=== PATIENT | female | born 1990 | race Hispanic/Latino ===

== ENCOUNTER 2017-05-23 17:11 | Observation (INO) | payer MEDICAID ==
[2017-05-23 19:03] LABS: APPEARANCE,URINE Cloudy (CLEAR); BILIRUBIN,URINE Negative (NEGATIVE); COLOR,URINE Yellow (YELLOW); GLUCOSE, URINE (UA) Negative (NEGATIVE); KETONES,URINE Negative (NEGATIVE); LEUKOCYTE ESTERASE ,URINE Negative (NEGATIVE); NITRATE,URINE Negative (NEGATIVE); OCCULT BLOOD,URINE Negative (NEGATIVE); PH,URINE 6.5 (5.0-8.0); PROTEIN,URINE Negative (NEGATIVE)
[2017-05-23 19:37] LABS: AMORPHOUS SEDIMENT,UR Few /LPF (None Seen); BACTERIA,URINE None Seen /HPF (None Seen); RBC,URINE None Seen /HPF (0-1); SQUAMOUS EPITHELIAL CELL,UR 0-2 /LPF (0-2); WBC,URINE 0-1 /HPF (0-1)
== END 2017-05-23 20:00 | disposition home or self-care (01) ==
LOC: EDH 17:11 → LDH 17:12
PROVIDERS: ADMIT Obstetrics & Gynecology; ATTEND Obstetrics & Gynecology
DX: O42.913 Preterm premature rupture of membranes, unspecified as to length of time between rupture and onset of labor, third trimester (principal); O26.893 Other specified pregnancy related conditions, third trimester; N89.8 Other specified noninflammatory disorders of vagina; R10.9 Unspecified abdominal pain; M54.9 Dorsalgia, unspecified; Z3A.36 36 weeks gestation of pregnancy
CPT/HCPCS: 81001; 99285; G0378 ×3

== ENCOUNTER 2017-06-13 18:13 | Inpatient (IN) | payer MEDICAID ==
[~2017-06-13] VITALS: Ht 165.1 cm; Wt 91.6 kg
[2017-06-13] MEDS ORDERED: LACTATED RINGERS 1000ML 1,000 ML IV PRN (18:21)
[2017-06-13] MEDS ORDERED: OXYTOCIN-LR 20 UNITS/1000 ML 1,000 ML IV SCH (18:30)
[2017-06-13 19:30] VITALS: BP 120/80
[2017-06-13] MEDS ORDERED: MEPERIDINE-PF 50 MG/ML SYG IVP STA (20:07)
[2017-06-13] MEDS ORDERED: PROMETHAZINE HCL 25 MG/ML 1ML AMPULE IM STA (20:07)
[2017-06-13 20:15] LABS: APPEARANCE,URINE Cloudy (CLEAR); BILIRUBIN,URINE Negative (NEGATIVE); COLOR,URINE Yellow (YELLOW); GLUCOSE, URINE (UA) Negative (NEGATIVE); KETONES,URINE Negative (NEGATIVE); LEUKOCYTE ESTERASE ,URINE Large (NEGATIVE); NITRATE,URINE Negative (NEGATIVE); OCCULT BLOOD,URINE Negative (NEGATIVE); PH,URINE 6.5 (5.0-8.0); PROTEIN,URINE Negative (NEGATIVE)
[2017-06-13 20:33] LABS: BACTERIA,URINE Few /HPF (None Seen); RBC,URINE None Seen /HPF (0-1); SQUAMOUS EPITHELIAL CELL,UR 50-100 /HPF (0-2)
[2017-06-13 20:34] LABS: MUCUS,URINE Few LPF (None Seen)
[2017-06-13 21:23] LABS: HEMATOCRIT 28.4 % (36-48); MEAN CORPUSCULAR HEMOGLOBIN 25.9 pg (27.0-33.0); MEAN CORPUSCULAR HGB CONC 34.2 g/dL (32.0-36.0); MEAN CORPUSCULAR VOLUME 75.7 fL (79-99); PLATELET COUNT (AUTO) 254 K/uL (130-400); RED BLOOD CELL COUNT(AUTO) 3.74 MIL/uL (4.00-5.50); RED CELL DISTRIBUTION WIDTH 18.5 % (11.0-15.5); WHITE BLOOD COUNT (AUTO) 7.9 K/uL (4.8-10.8)
[2017-06-14] MEDS ORDERED: OXYTOCIN 10 USP UNITS/ML 20 UNIT in LACTATED RINGERS 1000ML 1,000 ML IV SCH (01:00)
[2017-06-14] MEDS ORDERED: LACTATED RINGERS 1000ML 1,000 ML IV ONE (02:39)
[2017-06-14] MEDS ORDERED: OXYTOCIN 10 USP UNITS/ML ONE ×3 (02:40→16:11)
[2017-06-14] MEDS ORDERED: PROMETHAZINE HCL 25 MG/ML 1ML AMPULE IM ONE (12:14)
[2017-06-14] MEDS ORDERED: MEPERIDINE-PF 50 MG/ML SYG ONE (12:15)
[2017-06-14] MEDS ORDERED: LANOLIN 30GM OINTMENT TP PRN (15:00)
[2017-06-14] MEDS ORDERED: BENZOCAINE/LANOLIN/ALOE VERA 60 ML AEROSOL TP PRN (15:00)
[2017-06-14] MEDS ORDERED: WITCH HAZEL 1 PAD TP PRN (15:00)
[2017-06-14] MEDS ORDERED: MEASLES/MUMPS/RUBELLA VACCINE, LIVE 0.5 ML/VIAL SQ PRN (15:00)
[2017-06-14] MEDS ORDERED: DIPH,PERTUSS(ACELL),TET VAC/PF 0.5 ML VIAL IM PRN (15:00)
[2017-06-14 16:25] VITALS: BP 104/67
[2017-06-14] MEDS ORDERED: PREN-66 PO (16:33)
[2017-06-14] MEDS ORDERED: FERS325 PO (16:33)
[2017-06-14] MEDS: IBUPROFEN 800 MG TAB PO PRN (16:55)
[2017-06-14] MEDS ORDERED: FLU VACC QS2017-18 36MOS UP/PF 60 MCG/0.5 ML ML IM SCH (18:45)
[2017-06-14] MEDS ORDERED: ACETAMINOPHEN 325 MG TAB PO PRN (19:00)
[2017-06-14 19:23] VITALS: BP 97/58
[2017-06-14] MEDS: DOCUSATE SODIUM 100 MG CAP PO SCH (21:03)
[2017-06-14 23:24] VITALS: BP 113/67
[2017-06-15 03:00] VITALS: BP 106/62
[2017-06-15] MEDS: IBUPROFEN 800 MG TAB PO PRN ×2 (03:22→12:54)
[2017-06-15 05:45] LABS: HEMATOCRIT 24.7 % (36-48); MEAN CORPUSCULAR HEMOGLOBIN 25.7 pg (27.0-33.0); MEAN CORPUSCULAR HGB CONC 34.1 g/dL (32.0-36.0); MEAN CORPUSCULAR VOLUME 75.5 fL (79-99); PLATELET COUNT (AUTO) 249 K/uL (130-400); RED BLOOD CELL COUNT(AUTO) 3.26 MIL/uL (4.00-5.50); RED CELL DISTRIBUTION WIDTH 18.4 % (11.0-15.5); WHITE BLOOD COUNT (AUTO) 11.2 K/uL (4.8-10.8)
[2017-06-15 07:28] VITALS: BP 113/68
[2017-06-15 09:17] LABS: HEPATITIS Bs ANTIGEN SCREEN P Negative (Negative)
[2017-06-15] MEDS: DOCUSATE SODIUM 100 MG CAP PO SCH (09:36)
[2017-06-15 11:28] VITALS: BP 102/64
[2017-06-15 15:16] VITALS: BP 95/52
== END 2017-06-15 18:20 | disposition home or self-care (01) | DRG 560 ==
LOC: LDH 18:13 → WSH 06-14 16:25
PROVIDERS: ADMIT Obstetrics & Gynecology; ATTEND Obstetrics & Gynecology
PROC: 10E0XZZ Delivery of Products of Conception, External Approach (ICD-10-PCS; principal; 2017-06-13)
PROC: 3E0234Z Introduction of Serum, Toxoid and Vaccine into Muscle, Percutaneous Approach (ICD-10-PCS; 2017-06-13)
PROC: 3E0234Z Introduction of Serum, Toxoid and Vaccine into Muscle, Percutaneous Approach (ICD-10-PCS; 2017-06-13)
PROC: 3E0134Z Introduction of Serum, Toxoid and Vaccine into Subcutaneous Tissue, Percutaneous Approach (ICD-10-PCS; 2017-06-13)
DX: O99.02 Anemia complicating childbirth (principal); D64.9 Anemia, unspecified; Z37.0 Single live birth; Z3A.39 39 weeks gestation of pregnancy; Z23 Encounter for immunization; Z88.8 Allergy status to other drugs, medicaments and biological substances
CPT/HCPCS: 36415; 81001; 85027; 86592; 86850; 86900; 86901; 87340; 90715; A4314; J2175; J2550; J2590; J7120

== ENCOUNTER 2018-07-12 00:30 | Emergency (ER) | payer MEDICAID, OTHER ==
[~2018-07-12 00:30] MED LIST: PREN-66 PO
[2018-07-12] MEDS ORDERED: METOCLOPRAMIDE 10 MG TABLET PO ONE (02:33)
[2018-07-12] MEDS ORDERED: SODIUM CHLORIDE 0.9% 1000ML 1,000 ML IV ONE (02:33)
[2018-07-12] MEDS ORDERED: ONDANSETRON HCL 4 MG/2 ML VIAL IVP ONE (02:33)
[2018-07-12] MEDS ORDERED: CYCLOBENZAPRINE HCL 10 MG TABLET PO ONE (02:33)
[2018-07-12] MEDS ORDERED: CEPHALEXIN 500 MG CAPSULE PO ONE (02:47)
[2018-07-12 06:13] LABS: ALBUMIN 3.6 g/dL (3.5-5.0); BILIRUBIN,TOTAL 0.1 mg/dL (0.2-1.0); CREATININE 0.5 mg/dL (0.5-1.5); POTASSIUM 3.6 mmol/L (3.5-5.1); TOTAL PROTEIN, SERUM 7.2 g/dL (6.0-8.3)
[2018-07-12 06:18] LABS: INR 1.03 (0.85-1.15); PROTHROMBIN TIME 10.8 SEC (9.6-11.6)
[2018-07-12 06:56] LABS: BASOPHILS % (AUTO) 0.6 % (0.0-5.0); EOSINOPHILS % (AUTO) 2.4 % (0.0-8.0); HEMATOCRIT 34.2 % (36-48); LYMPHOCYTES % (AUTO) 32.4 % (21.0-51.0); MEAN CORPUSCULAR HEMOGLOBIN 30.1 pg (27.0-33.0); MEAN CORPUSCULAR HGB CONC 34.7 g/dL (32.0-36.0); MEAN CORPUSCULAR VOLUME 86.7 fL (79-99); MONOCYTES % (AUTO) 6.3 % (3.0-13.0); NEUTROPHILS % (AUTO) 58.3 % (40.0-77.0); NUCLEATED RED BLOOD CELLS 0.1 % (0.0-0.19); PLATELET COUNT (AUTO) 308 K/uL (130-400); RED BLOOD CELL COUNT(AUTO) 3.95 MIL/uL (4.00-5.50); RED CELL DISTRIBUTION WIDTH 14.5 % (11.0-15.5); WHITE BLOOD COUNT (AUTO) 10.1 K/uL (4.8-10.8)
[2018-07-12 07:56] LABS: APPEARANCE,URINE CLEAR (CLEAR); BILIRUBIN,URINE NEGATIVE (NEGATIVE); COLOR,URINE YELLOW (YELLOW); GLUCOSE, URINE (UA) NEGATIVE (NEGATIVE); KETONES,URINE NEGATIVE (NEGATIVE); NITRATE,URINE NEGATIVE (NEGATIVE); OCCULT BLOOD,URINE NEGATIVE (NEGATIVE); PH,URINE 7.5 (5.0-8.0); PROTEIN,URINE NEGATIVE (NEGATIVE); UROBILINOGEN,URINE 0.2 mg/dL (0.2-1.0)
[2018-07-12 07:57] LABS: LEUKOCYTE ESTERASE ,URINE MODERATE (NEGATIVE)
[2018-07-12 07:58] LABS: BACTERIA,URINE Many /HPF (None Seen); HCG,QUAL RESULT POSITIVE (NEGATIVE); SQUAMOUS EPITHELIAL CELL,UR Rare /HPF (0-2); WBC,URINE 0-1 /HPF (0-1)
== END 2018-07-12 03:56 | disposition home or self-care (01) ==
LOC: EDH 00:30
DX: O20.0 Threatened abortion (principal); O23.41 Unspecified infection of urinary tract in pregnancy, first trimester; Z88.6 Allergy status to analgesic agent; Z3A.09 9 weeks gestation of pregnancy; Z72.0 Tobacco use
CPT/HCPCS: 36415; 76801; 80053; 81001; 81025; 83690; 85025; 85610; 85730; 86850; 86900; 86901; 96374; 96375; 99285; J2405; J7030

== ENCOUNTER 2019-01-08 14:12 | Observation (INO) | payer MEDICAID ==
[2019-01-08 15:09] LABS: APPEARANCE,URINE Cloudy (CLEAR); BILIRUBIN,URINE Negative (NEGATIVE); COLOR,URINE Yellow (YELLOW); GLUCOSE, URINE (UA) Negative (NEGATIVE); KETONES,URINE Negative (NEGATIVE); LEUKOCYTE ESTERASE ,URINE Moderate (NEGATIVE); NITRATE,URINE Negative (NEGATIVE); OCCULT BLOOD,URINE Negative (NEGATIVE); PH,URINE 7.5 (5.0-8.0); PROTEIN,URINE Negative (NEGATIVE); UROBILINOGEN,URINE 0.2 mg/dL (0.2-1.0)
[2019-01-08 15:26] LABS: BACTERIA,URINE Moderate /HPF (None Seen); MUCUS,URINE Few LPF (None Seen)
== END 2019-01-08 16:00 | disposition home or self-care (01) ==
LOC: EDH 14:12 → LDH 14:53
PROVIDERS: ADMIT Obstetrics & Gynecology; ATTEND Obstetrics & Gynecology
DX: O26.893 Other specified pregnancy related conditions, third trimester (principal); R10.32 Left lower quadrant pain; Z87.42 Personal history of other diseases of the female genital tract; Z3A.33 33 weeks gestation of pregnancy
CPT/HCPCS: 81001; 99284; G0378

== ENCOUNTER 2022-11-27 17:35 | Inpatient (IN) | payer MEDICAID ==
[~2022-11-27] VITALS: Ht 165.1 cm; Wt 86.2 kg
[~2022-11-27 17:35] MED LIST changes: +ACET1TAB12 PO; +PREN1TAB80 PO; +RANI-655 PO
[2022-11-27 18:54] LABS: BASOPHILS # (AUTO) 0.05 K/uL (0.00-0.20); BASOPHILS % (AUTO) 0.4 % (0.0-5.0); EOSINOPHILS # (AUTO) 0.27 K/uL (0.00-0.70); HEMATOCRIT 36.6 % (36-48); IMMATURE GRANULOCYTE ABSOLUTE 0.06 K/uL (0-1); LYMPHOCYTES % (AUTO) 22.7 % (21.0-51.0); MEAN CORPUSCULAR HEMOGLOBIN 29.1 pg (27.0-33.0); MEAN CORPUSCULAR HGB CONC 32.2 g/dL (32.0-36.0); MEAN CORPUSCULAR VOLUME 90.4 fL (79-99); MONOCYTES # (AUTO) 0.8 K/uL (0.1-1.0); MONOCYTES % (AUTO) 5.7 % (3.0-13.0); NEUTROPHILS # (AUTO) 9.2 K/uL (1.8-7.7); NEUTROPHILS % (AUTO) 68.8 % (40.0-77.0); PLATELET COUNT (AUTO) 426 K/uL (130-400); RED BLOOD CELL COUNT(AUTO) 4.05 MIL/uL (4.00-5.50); RED CELL DISTRIBUTION WIDTH 13.2 % (11.0-15.5); WHITE BLOOD COUNT (AUTO) 13.4 K/uL (4.8-10.8)
[2022-11-27 19:18] LABS: CREATININE 0.6 mg/dL (0.5-1.5); POTASSIUM 3.3 mmol/L (3.5-5.1)
[2022-11-27 19:23] LABS: ALBUMIN 3.8 g/dL (3.5-5.0); BILIRUBIN,TOTAL 0.1 mg/dL (0.2-1.0); TOTAL PROTEIN, SERUM 8.4 g/dL (6.0-8.3)
[2022-11-27] MEDS ORDERED: CEFTRIAXONE 1G VIAL IVPB ONE (19:30)
[2022-11-27] MEDS: CLINDAMYCIN IVPB 600MG/50ML 50 ML IV SCH (19:30)
[2022-11-27] MEDS ORDERED: KETOROLAC 30MG VIAL (30MG/ML) IVP ONE (19:30)
[2022-11-27] MEDS ORDERED: IOHEXOL-350 75 ML VIAL IV ONE (22:00)
[2022-11-27] MEDS ORDERED: ACETAMINOPHEN 325 MG TAB PO PRN ×2 (22:00)
[2022-11-27] MEDS ORDERED: ONDANSETRON 4MG INJ IV PRN (22:00)
[2022-11-27] MEDS ORDERED: LIDOCAINE HCL 1% 20 ML VIAL ONE (22:09)
[2022-11-27] MEDS ORDERED: HYDROMORPHONE 0.5 MG SYG (0.5MG/0.5ML) IVP ONE (22:30)
[2022-11-27] MEDS ORDERED: POTASSIUM CHLORIDE 20MEQ/100ML 100 ML IV PRN (22:30)
[2022-11-27] MEDS ORDERED: KCL 20 MEQ ERTAB PO PRN (22:30)
[2022-11-27] MEDS ORDERED: TRAMADOL HCL 50 MG TABLET PO SCH (22:30)
[2022-11-27] MEDS ORDERED: POTASSIUM CHLORIDE 10% ELIXIR 20 MEQ/15 ML UDCUP PO PRN (22:30)
[2022-11-27] MEDS ORDERED: MAGNESIUM 2GM PREMIX 50ML 50 ML IV PRN (22:30)
[2022-11-27] MEDS: LIDOCAINE HCL 1% 20 ML VIAL INJ SCH (22:38)
[2022-11-27 23:57] VITALS: O2SAT 100
[2022-11-28] MEDS: TRAMADOL HCL 50 MG TABLET PO PRN ×2 (05:41→16:57)
[2022-11-28 07:32] LABS: BASOPHILS # (AUTO) 0.03 K/uL (0.00-0.20); BASOPHILS % (AUTO) 0.3 % (0.0-5.0); EOSINOPHILS % (AUTO) 3.1 % (0.0-8.0); HEMATOCRIT 32.9 % (36-48); IMMATURE GRANULOCYTE ABSOLUTE 0.05 K/uL (0-1); LYMPHOCYTES # (AUTO) 2.5 K/uL (1.0-4.8); LYMPHOCYTES % (AUTO) 25.9 % (21.0-51.0); MEAN CORPUSCULAR HEMOGLOBIN 29.4 pg (27.0-33.0); MEAN CORPUSCULAR HGB CONC 33.1 g/dL (32.0-36.0); MEAN CORPUSCULAR VOLUME 88.7 fL (79-99); MONOCYTES # (AUTO) 0.5 K/uL (0.1-1.0); MONOCYTES % (AUTO) 5.6 % (3.0-13.0); NEUTROPHILS # (AUTO) 6.3 K/uL (1.8-7.7); NEUTROPHILS % (AUTO) 64.6 % (40.0-77.0); PLATELET COUNT (AUTO) 371 K/uL (130-400); RED BLOOD CELL COUNT(AUTO) 3.71 MIL/uL (4.00-5.50); RED CELL DISTRIBUTION WIDTH 13.1 % (11.0-15.5); WHITE BLOOD COUNT (AUTO) 9.7 K/uL (4.8-10.8)
[2022-11-28 08:00] LABS: ALBUMIN 3.1 g/dL (3.5-5.0); BILIRUBIN,TOTAL 0.3 mg/dL (0.2-1.0); CREATININE 0.5 mg/dL (0.5-1.5); MAGNESIUM 1.9 mg/dL (1.80-2.40); POTASSIUM 3.8 mmol/L (3.5-5.1); TOTAL PROTEIN, SERUM 7.3 g/dL (6.0-8.3)
[2022-11-28 08:10] LABS: INR 0.94 (0.85-1.15)
[2022-11-28 08:12] LABS: PARTIAL THROMBOPLASTIN TIME 27.3 SEC (26.3-35.5)
[2022-11-28] MEDS: CLINDAMYCIN IVPB 600MG/50ML 50 ML IV SCH ×3 (09:00→16:57)
[2022-11-28] MEDS: FAMOTIDINE 20MG TAB PO SCH ×2 (09:39→20:57)
[2022-11-28] MEDS ORDERED: KETOROLAC 15MG/ML VIAL (15MG/ML) IM PRN (13:30)
[2022-11-28] MEDS: KETOROLAC 15MG/ML VIAL (15MG/ML) IV PRN ×2 (13:51→21:02)
[2022-11-28 14:21] LABS: AMPHET/METH SCREEN,URINE NEGATIVE (NEGATIVE); BARBITURATE SCREEN, URINE NEGATIVE (NEGATIVE); BENZODIAZEPINES SCREEN,URINE NEGATIVE (NEGATIVE); CANNABINOID SCREEN,URINE NEGATIVE (NEGATIVE); COCAINE SCREEN,URINE NEGATIVE (NEGATIVE); OPIATE SCREEN,URINE NEGATIVE (NEGATIVE); PHENCYCLIDINE SCREEN,URINE NEGATIVE (NEGATIVE)
[2022-11-28 16:35] VITALS: BP 109/64; PULSE 62; RESP 18
[2022-11-28 19:59] VITALS: O2SAT 98
[2022-11-28 20:27] VITALS: BP 100/57; PULSE 59; RESP 19
[2022-11-28] MEDS: LIDOCAINE HCL 1% 20 ML VIAL INJ SCH (20:57)
[2022-11-28] MEDS ORDERED: PROMETHAZINE HCL 25 MG/ML 1ML AMPULE IM PRN (22:00)
[2022-11-28] MEDS: MEPERIDINE-PF 50 MG/ML SYG IM PRN (22:14)
[2022-11-29] VITALS (8 sets, daily range): BP systolic 95–122; BP diastolic 50–77; PULSE 51–71; RESP 16–19; O2SAT 100
[2022-11-29] MEDS: CLINDAMYCIN IVPB 600MG/50ML 50 ML IV SCH ×4 (00:33→23:58)
[2022-11-29 05:05] LABS: HEMATOCRIT 32.4 % (36-48); MEAN CORPUSCULAR HEMOGLOBIN 29.1 pg (27.0-33.0); MEAN CORPUSCULAR HGB CONC 31.8 g/dL (32.0-36.0); MEAN CORPUSCULAR VOLUME 91.5 fL (79-99); RED BLOOD CELL COUNT(AUTO) 3.54 MIL/uL (4.00-5.50); RED CELL DISTRIBUTION WIDTH 12.9 % (11.0-15.5); WHITE BLOOD COUNT (AUTO) 8.9 K/uL (4.8-10.8)
[2022-11-29 05:22] LABS: ALBUMIN 2.9 g/dL (3.5-5.0); BILIRUBIN,TOTAL 0.1 mg/dL (0.2-1.0); CREATININE 0.5 mg/dL (0.5-1.5); POTASSIUM 3.8 mmol/L (3.5-5.1); TOTAL PROTEIN, SERUM 6.8 g/dL (6.0-8.3)
[2022-11-29] MEDS: FAMOTIDINE 20MG TAB PO SCH ×2 (09:04→19:39)
[2022-11-29] MEDS: MEPERIDINE-PF 50 MG/ML SYG IM PRN ×2 (09:57→19:39)
[2022-11-29] MEDS: KETOROLAC 15MG/ML VIAL (15MG/ML) IV PRN (11:43)
[2022-11-29] MEDS: LIDOCAINE HCL 1% 20 ML VIAL INJ SCH (18:12)
[2022-11-29] MEDS ORDERED: MORPHINE 2 MG SYG ONE (22:08)
[2022-11-29] MEDS ORDERED: MORPHINE 2 MG SYG IVP ONE (22:30)
[2022-11-29] MEDS ORDERED: ASPIRIN 81MG CHEW TAB PO ONE (22:30)
[2022-11-29] MEDS ORDERED: NITROGLYCERIN 1GM OINT 1 INCH/1GM TD ONE (22:30)
[2022-11-30 00:22] VITALS: BP 103/46; PULSE 51; RESP 18
[2022-11-30] MEDS ORDERED: HALOPERIDOL INJ 5 MG/ML VIAL IM SCH (01:30)
[2022-11-30 04:00] VITALS: BP 93/56; PULSE 52; RESP 18
[2022-11-30 06:24] LABS: MEAN CORPUSCULAR HEMOGLOBIN 28.8 pg (27.0-33.0); MEAN CORPUSCULAR HGB CONC 32.6 g/dL (32.0-36.0); MEAN CORPUSCULAR VOLUME 88.3 fL (79-99); RED BLOOD CELL COUNT(AUTO) 3.85 MIL/uL (4.00-5.50); RED CELL DISTRIBUTION WIDTH 13.1 % (11.0-15.5); WHITE BLOOD COUNT (AUTO) 9.4 K/uL (4.8-10.8)
[2022-11-30 06:44] LABS: ALBUMIN 3.2 g/dL (3.5-5.0); BILIRUBIN,TOTAL 0.1 mg/dL (0.2-1.0); CREATININE 0.6 mg/dL (0.5-1.5); POTASSIUM 4.1 mmol/L (3.5-5.1); TOTAL PROTEIN, SERUM 7.6 g/dL (6.0-8.3)
[2022-11-30 07:57] VITALS: BP 90/51; PULSE 53; RESP 16
[2022-11-30 08:00] VITALS: O2SAT 99
[2022-11-30] MEDS: FAMOTIDINE 20MG TAB PO SCH (08:12)
[2022-11-30] MEDS: CLINDAMYCIN IVPB 600MG/50ML 50 ML IV SCH ×2 (08:12→16:20)
[2022-11-30] MEDS: KETOROLAC 15MG/ML VIAL (15MG/ML) IV PRN ×2 (10:20→16:21)
[2022-11-30 11:00] VITALS: BP 96/53; PULSE 56; RESP 16
[2022-11-30 16:00] VITALS: BP 111/64; PULSE 62; RESP 16
== END 2022-11-30 18:50 | disposition home or self-care (01) | DRG 383 ==
LOC: EDH 17:35 → EDHIP 17:36 → 3DH 11-28 16:00
PROVIDERS: ADMIT Hospitalist; ATTEND Hospitalist
PROC: 0H9HXZZ Drainage of Right Upper Leg Skin, External Approach (ICD-10-PCS; principal; 2022-11-27)
DX: L03.115 Cellulitis of right lower limb (principal); B95.62 Methicillin resistant Staphylococcus aureus infection as the cause of diseases classified elsewhere; D75.839 Thrombocytosis, unspecified; L02.415 Cutaneous abscess of right lower limb; E66.9 Obesity, unspecified; F12.90 Cannabis use, unspecified, uncomplicated; Z98.51 Tubal ligation status; Z88.5 Allergy status to narcotic agent; Z68.31 Body mass index [BMI] 31.0-31.9, adult
CPT/HCPCS: 36415; 73701; 80053; 80305; 81025; 83605; 83735; 84145; 84484; 84703; 85025; 85027; 85610; 85730; 87040; 87070; 87076; 87077; 87186; 93005; A6266; G0378; J0696; J1170; J1630; J1885; J2175; J2270; J2550; J3490; Q9967

== ENCOUNTER 2023-03-19 13:53 | Emergency (ER) | payer MEDICAID ==
[~2023-03-19] VITALS: Ht 165.1 cm; Wt 89.8 kg
[2023-03-19] MEDS ORDERED: KETOROLAC 60 MG VIAL (30MG/ML) IM ONE (14:30)
[2023-03-19] MEDS ORDERED: CEFTRIAXONE 1G VIAL IVPB ONE (14:30)
[2023-03-19 15:09] VITALS: BP 121/63; PULSE 75; RESP 14; O2SAT 98
[2023-03-19] MEDS ORDERED: CLIN-141 PO (15:10)
[2023-03-19] MEDS ORDERED: IBUP-2077 PO (15:10)
== END 2023-03-19 15:13 | disposition home or self-care (01) ==
LOC: EDH 13:53
DX: K02.9 Dental caries, unspecified (principal); K08.89 Other specified disorders of teeth and supporting structures; Z88.5 Allergy status to narcotic agent
CPT/HCPCS: 99284; 96374; 96372; J0696; J1885

== ENCOUNTER 2023-05-31 09:37 | Emergency (ER) | payer MEDICAID ==
[~2023-05-31] VITALS: Ht 165.1 cm; Wt 89.4 kg
[~2023-05-31 09:37] MED LIST changes: -ACET1TAB12 PO; +CLIN-141 PO; +IBUP-2077 PO; -PREN-66 PO; -PREN1TAB80 PO; -RANI-655 PO
[2023-05-31 09:38] VITALS: BP 112/66; PULSE 56; RESP 20
[2023-05-31 11:03] LABS: BASOPHILS # (AUTO) 0.05 K/uL (0.00-0.20); BASOPHILS % (AUTO) 0.6 % (0.0-5.0); EOSINOPHILS # (AUTO) 0.21 K/uL (0.00-0.70); EOSINOPHILS % (AUTO) 2.3 % (0.0-8.0); HEMATOCRIT 38.2 % (36-48); IMMATURE GRANULOCYTE ABSOLUTE 0.06 K/uL (0-1); LYMPHOCYTES # (AUTO) 2.5 K/uL (1.0-4.8); LYMPHOCYTES % (AUTO) 27.1 % (21.0-51.0); MEAN CORPUSCULAR HEMOGLOBIN 28.3 pg (27.0-33.0); MEAN CORPUSCULAR HGB CONC 32.2 g/dL (32.0-36.0); MEAN CORPUSCULAR VOLUME 87.8 fL (79-99); MONOCYTES # (AUTO) 0.6 K/uL (0.1-1.0); MONOCYTES % (AUTO) 7.1 % (3.0-13.0); NEUTROPHILS # (AUTO) 5.6 K/uL (1.8-7.7); NEUTROPHILS % (AUTO) 62.2 % (40.0-77.0); PLATELET COUNT (AUTO) 350 K/uL (130-400); RED BLOOD CELL COUNT(AUTO) 4.35 MIL/uL (4.00-5.50); RED CELL DISTRIBUTION WIDTH 13.2 % (11.0-15.5)
[2023-05-31 11:06] LABS: CREATININE 0.5 mg/dL (0.5-1.5); POTASSIUM 3.9 mmol/L (3.5-5.1)
[2023-05-31 11:11] LABS: ALBUMIN 3.6 g/dL (3.5-5.0); BILIRUBIN,TOTAL 0.2 mg/dL (0.2-1.0); TOTAL PROTEIN, SERUM 7.2 g/dL (6.0-8.3)
[2023-05-31] MEDS: KETOROLAC 30MG VIAL (30MG/ML) IM ONE (11:18)
[2023-05-31 11:29] LABS: APPEARANCE,URINE TURBID (CLEAR); BILIRUBIN,URINE NEGATIVE (NEGATIVE); COLOR,URINE YELLOW (YELLOW); GLUCOSE, URINE (UA) NEGATIVE (NEGATIVE); KETONES,URINE NEGATIVE (NEGATIVE); LEUKOCYTE ESTERASE ,URINE 500 Leu/uL (NEGATIVE); NITRATE,URINE NEGATIVE (NEGATIVE); OCCULT BLOOD,URINE NEGATIVE (NEGATIVE); PH,URINE 5.5 (5.0-8.0); PROTEIN,URINE 10 mg/dL (NEGATIVE); UROBILINOGEN,URINE 0.2 mg/dL (0.2-1.0)
[2023-05-31 11:41] LABS: ADD UA MICROSCOPIC YES
[2023-05-31 11:55] LABS: BACTERIA,URINE MANY /HPF (None Seen); MUCUS,URINE RARE LPF (None Seen); SQUAMOUS EPITHELIAL CELL,UR MANY /HPF (0-2); WBC CLUMP FEW /HPF (0-1); WBC,URINE 26-50 /HPF (0-1)
[2023-05-31 12:10] LABS: HCG,QUALITATIVE URINE NEGATIVE (NEGATIVE)
[2023-05-31] MEDS ORDERED: IOHEXOL-350 75 ML VIAL IV ONE (12:33)
[2023-05-31] MEDS: CEFTRIAXONE 1G VIAL IVPB ONE (12:42)
[2023-05-31] MEDS ORDERED: AMOX1TAB16 PO (13:15)
[2023-05-31] MEDS ORDERED: IBUP-2077 PO (13:15)
[2023-05-31] MEDS: IBUPROFEN 800 MG TAB PO ONE (13:41)
[2023-05-31] MEDS: IBUPROFEN 800 MG TAB ONE (13:41)
== END 2023-05-31 13:48 | disposition home or self-care (01) ==
LOC: EDH 09:37
DX: K11.3 Abscess of salivary gland (principal); N39.0 Urinary tract infection, site not specified
CPT/HCPCS: 99285; 96374; 70487; 80053; 85025; 87088; 81001; 81025; 36415; 96372; J0696; J1885; Q9967

== ENCOUNTER 2023-08-27 11:36 | Emergency (ER) | payer MEDICAID, OTHER ==
[~2023-08-27] VITALS: Ht 165.1 cm; Wt 88.0 kg
[~2023-08-27 11:36] MED LIST changes: +AMOX1TAB16 PO
[2023-08-27 11:43] VITALS: BP 133/90; PULSE 74; RESP 17
[2023-08-27] MEDS: IBUPROFEN 600 MG TABLET PO ONE (14:23)
[2023-08-27] MEDS: HYDROCODONE/ACETAMINOPHEN 5/325 MG TAB PO ONE (14:23)
[2023-08-27] MEDS ORDERED: PENI500T2 PO (14:38)
[2023-08-27] MEDS ORDERED: ACET-2079 PO (14:38)
[2023-08-27] MEDS ORDERED: IBUP-2070 PO (14:38)
[2023-08-27] MEDS ORDERED: PENICILLIN V POTASSIUM 500 MG TABLET PO STA (14:43)
[2023-08-29] MEDS ORDERED: ACET-2079 PO (06:04)
== END 2023-08-27 14:54 | disposition home or self-care (01) ==
LOC: EDH 11:36
DX: K04.7 Periapical abscess without sinus (principal); K08.89 Other specified disorders of teeth and supporting structures; Z88.5 Allergy status to narcotic agent